=== PATIENT | male | born 1970 | race Caucasian/White ===

== ENCOUNTER 2017-04-10 23:30 | Emergency (ER) | payer OTHER ==
[2017-04-11 00:19] VITALS: PULSE 98; TEMP 98.1; O2SAT 93
[2017-04-11] MEDS ORDERED: Albuterol-Ipratrop 3 mg / 0.5 (3 ml) UD INH STA ×4 (00:19→01:52)
[2017-04-11] MEDS ORDERED: Albuterol-Ipratrop 3 mg / 0.5 (3 ml) UD ONE (00:23)
--- NOTE | 2017-04-11 00:34 | ED PDOC ---
HPI: Pediatric Wheezing/Asthma Time Seen by Provider: 04/11/17 00:13 Chief Complaint (Nursing): Respiratory Distress Chief Complaint (Provider): Respiratory distress History Per: Patient History/Exam Limitations: no limitations Current Symptoms Are (Timing): Still Present Additional History Per: Patient Additional Complaint(s): Marylin Soares is a 46 year old male with a past medical history of asthma who presents to the ED with a chief complaint of coughing for about 3 weeks. Denies any associated symptoms including fever, chills and contact to sickness. Patient has a decreased tolerance for exercise and is an active smoker. Patient states he has been using Albuterol at home but has not helped. - Asthma History Current Asthma Therapy: Albuterol Past Medical History-Pediatric Reviewed: Historical Data, Nursing Documentation, Vital Signs - Medical History Other PMH: Asthma - Surgical History Surgical History: No Surg Hx - Family History Family History: States: No Known Family Hx - Immunization History Hx Tetanus Toxoid Vaccination: No Hx Influenza Vaccination: No Hx Pneumococcal Vaccination: No - Home Medications Home Medications: Ambulatory Orders Medication Instructions Recorded Ciprofloxacin [Cipro] 1 tab PO BID #14 tab 08/30/16 Unknown Cholesterol Medication 08/30/16 metroNIDAZOLE [Flagyl] 500 mg PO TID #21 tab 08/30/16 Albuterol HFA [Ventolin HFA 90 2 puff IH [id number] #1 puff 04/11/17 mcg/actuation (8 g)] Fluticasone Propionate [Flovent 12 gm IH DAILY #1 aer.w.adap 04/11/17 Hfa] predniSONE [predniSONE Tab] 60 mg PO DAILY #9 tab 04/11/17 - Allergies Allergies/Adverse Reactions: Allergies Allergy/AdvReac Type Severity Reaction Status Date / Time No Known Allergies Allergy Verified 08/30/16 06:46 Review of Systems ROS Statement: Except As Marked, All Systems Reviewed And Found Negative Constitutional: Negative for: Fever, Chills, Other (Sick contact) Cardiovascular: Negative for: Chest Pain Respiratory: Positive for: Wheezing Physical Exam - Pediatric - Physical Exam Appears: Well Head Exam: ATRAUMATIC, NORMAL INSPECTION, NORMOCEPHALIC Skin: Normal Color, Warm, Dry Eye Exam: bilateral eye: normal inspection, PERRL, EOMI Ear(s): Bilateral: Normal Nose: Normal ENT Inspection Throat: Normal Neck: Normal, Painless ROM, Supple Lymphatic: Deferred Cardiovascular: Regular Rate, Rhythm, No Murmur, No Tachycardia Respiratory: Wheezing (Bilaterally with prolonged end-expiratory phase) Gastrointestinal/Abdominal: Normal Exam, Soft, No Tenderness Rectal: Deferred Back: Normal Inspection Extremity: Normal ROM Neurological/Psych: Oriented x3, Other (Alert) - ECG O2 Sat by Pulse Oximetry: 93 (RA) Pulse Ox Interpretation: Normal Medical Decision Making Medical Decision Makin: Initial Impression: Asthma exacerbation Initial Plan: * Chest two views * Albuterol/ Ipratropium 3ml * Prednisone 60mg * Peak flow pre/post Treatment * Influenza A B * Re-Eval 230AM: Pt.'s wheezing improved greatly, vitals improved. Instructed on smoking cessation, referral to pulmonology given. Will start patient on daily inhaled corticosteroid. Will d/c, return precautions given. Scribe Attestation: Documented by Hannah Quintanilla acting as a scribe for George Thapa MD. Provider Scribe Attestation: All medical record entries made by the Scribe were at my direction and personally dictated by me. I have reviewed the chart and agree that the record accurately reflects my personal performance of the history, physical exam, medical decision making, and the department course for this patient. I have also personally directed, reviewed, and agree with the discharge instructions and disposition. Disposition - Clinical Impression Clinical Impression: COPD (chronic obstructive pulmonary disease) - Disposition Referrals: Jules Brothers MD [Staff Provider] - ([employer] PAINTER (LUNG SPECIALIST)) Disposition Time: 02:37 Condition: STABLE Prescriptions: Albuterol HFA [Ventolin HFA 90 mcg/actuation (8 g)] 2 puff IH [id number] #1 puff Fluticasone Propionate [Flovent Hfa] 12 gm IH DAILY #1 aer.w.adap predniSONE [predniSONE Tab] 60 mg PO DAILY #9 tab Instructions: Asthma (ED), How to Stop Smoking (ED)
[2017-04-11 02:38] VITALS: BP 130/57; RESP 24
--- NOTE | 2017-04-11 07:59 | RAD ---
HISTORY: smoker, cough, wheezing COMPARISON: No prior. TECHNIQUE: Chest PA and lateral FINDINGS: LUNGS: No active pulmonary disease. PLEURA: No significant pleural effusion identified. No pneumothorax apparent. CARDIOVASCULAR: Normal. OSSEOUS STRUCTURES: No significant abnormalities. VISUALIZED UPPER ABDOMEN: Normal. OTHER FINDINGS: None. IMPRESSION: No active disease.
== END 2017-04-11 02:26 | disposition home or self-care (01) ==
LOC: H.ER 23:30
DX: J44.9 Chronic obstructive pulmonary disease, unspecified (principal)

== ENCOUNTER 2019-02-23 20:31 | Emergency (ER) | payer OTHER ==
[2019-02-23] MEDS ORDERED: Piperacillin/Tazobact 3.375 GM in Sodium Chloride 0.9% 100 ML IVPB STA (21:00)
[2019-02-23] MEDS ORDERED: Piperacillin/Tazobact 3.375 gm Inj IVPB ONE (21:15)
[2019-02-23] MEDS ORDERED: Vancomycin 1 g Inj ONE (21:15)
--- NOTE | 2019-02-23 21:16 | ED PDOC ---
Lower Extremity Pain/Injury Time Seen by Provider: 02/23/19 20:53 Chief Complaint (Nursing): Lower Extremity Problem/Injury Chief Complaint (Provider): Lower Extremity Problem/Injury History Per: Patient History/Exam Limitations: no limitations Onset/Duration Of Symptoms: Days (x1 week) Current Symptoms Are (Timing): Still Present Additional Complaint(s): Patient is a 48 y/o male with a PMHx of asthma, high cholesterol, and diabetes who presents to the ED for evaluation of progressively worsening pain, swelling, and redness to his right calf for the past week. Patient was initially seen by PCP who prescribed 875 mg BID Augmentin. Patient has been on antibiotics for one week. Patient has also been taking Advil for pain. Patient states he last took Advil at 6:00 this morning. Patient denies fever, trauma, chills, and numbness or tingling. PCP: Dr. Benjamin Tello Past Medical History Reviewed: Historical Data, Nursing Documentation, Vital Signs Vital Signs: Last Vital Signs Temp 98.4 F 02/23/19 20:48 Pulse 91 H 02/23/19 20:48 Resp 16 02/23/19 20:48 BP 131/80 02/23/19 20:48 Pulse Ox 96 02/23/19 20:48 - Medical History PMH: Asthma, Diabetes, Hypercholesterolemia, Hyperlipidemia - Surgical History Surgical History: No Surg Hx - Family History Family History: States: No Known Family Hx - Immunization History Hx Tetanus Toxoid Vaccination: No Hx Influenza Vaccination: No Hx Pneumococcal Vaccination: No - Home Medications Home Medications: Ambulatory Orders Medication Instructions Recorded Ciprofloxacin [Cipro] 1 tab PO BID #14 tab 08/30/16 Unknown Cholesterol Medication 08/30/16 metroNIDAZOLE [Flagyl] 500 mg PO TID #21 tab 08/30/16 Albuterol HFA [Ventolin HFA 90 2 puff IH [id number] #1 puff 04/11/17 mcg/actuation (8 g)] Fluticasone Propionate [Flovent 12 gm IH DAILY #1 aer.w.adap 04/11/17 Hfa] predniSONE [predniSONE Tab] 60 mg PO DAILY #9 tab 04/11/17 - Allergies Allergies/Adverse Reactions: Allergies Allergy/AdvReac Type Severity Reaction Status Date / Time No Known Allergies Allergy Verified 08/30/16 06:46 Review of Systems ROS Statement: Except As Marked, All Systems Reviewed And Found Negative Constitutional: Negative for: Fever, Chills Musculoskeletal: Positive for: Other (pain, swelling, and redness of right calf) Neurological: Negative for: Numbness (or tingling) Physical Exam - Reviewed Nursing Documentation Reviewed: Yes Vital Signs Reviewed: Yes - Physical Exam Appears: Positive for: Non-toxic, No Acute Distress Head Exam: Positive for: ATRAUMATIC, NORMAL INSPECTION, NORMOCEPHALIC Skin: Positive for: Normal Color, Warm, DRY Eye Exam: Positive for: EOMI, Normal appearance, PERRL Neck: Positive for: Normal, Painless ROM, Supple Cardiovascular/Chest: Positive for: Regular Rate, Rhythm. Negative for: Murmur Respiratory: Positive for: Normal Breath Sounds. Negative for: Respiratory Distress Pulses-Dorsalis Pedis (L): 2+ Pulses-Dorsalis Pedis (R): 2+ Gastrointestinal/Abdominal: Positive for: Normal Exam, Soft. Negative for: Tenderness Back: Positive for: Normal Inspection. Negative for: L CVA Tenderness, R CVA Tenderness, Vertebral Tenderness Extremity: Positive for: Swelling (mild; large amount of erythema on right calf with central open wound noted). Negative for: Other (no discharge; negative homans sign) Neurological/Psych: Positive for: Alert, Oriented (x3) - Laboratory Results Result Diagrams: 02/23/19 21:15 02/23/19 21:15 - ECG O2 Sat by Pulse Oximetry: 96 (RA) Pulse Ox Interpretation: Normal Medical Decision Making Medical Decision Making: Time: 2058 Impression: Leg Cellulitis Plan: Patient failed outpatient therapy. CMP CBC Vanomycin Zosyn Blood Culture IV Insertion [id number] Dr. Castillo, podiatry resident, is in ED and evaluated pt. and peformed I&D after speaking with Dr. Chen. Scribe Attestation: Documented by Dany Pace, acting as a scribe Heide Kinney PA-C. Provider Scribe Attestation: All medical record entries made by the Scribe were at my direction and personally dictated by me. I have reviewed the chart and agree that the record accurately reflects my personal performance of the history, physical exam, medical decision making, and the department course for this patient. I have also personally directed, reviewed, and agree with the discharge instructions and disposition. Disposition - Clinical Impression Clinical Impression: Cellulitis and abscess of right lower extremity - Patient ED Disposition Is Patient to be Admitted: Transfer of Care (Signed out to Maria Teresa SORENSON pending podiatry disposition and x-ray results.) - Disposition Disposition Time: 23:19 Condition: FAIR Forms: [employer] (Angolan)
[2019-02-23 21:53] LABS: BASO # 0.1 K/uL (0.0-0.2); BASO % 0.7 % (0.0-2.0); EOS # 0.1 K/uL (0.0-0.7); EOS % 1.3 % (0.0-4.0); HEMOGLOBIN 13.2 g/dL (12.0-18.0); LYMPH # 2.5 K/uL (1.0-4.3); LYMPH % 23.9 % (20.0-40.0); MEAN CELL VOLUME 83.3 fl (80.0-94.0); MEAN CORPUSCULAR HEMOGLOBIN 27.8 pg (27.0-31.0); MEAN CORPUSCULAR HGB CONC 33.4 g/dL (33.0-37.0); MEAN PLATELET VOLUME 9.8 fl (7.2-11.7); MONO # 0.7 K/uL (0.0-0.8); NEUT # 7.1 K/uL (1.8-7.0); NEUT % 67.1 % (50.0-75.0); RBC 4.73 Mil/uL (4.40-5.90); RED CELL DISTRIBUTION WIDTH 13.9 % (11.5-14.5); WHITE BLOOD COUNT 10.6 K/uL (4.8-10.8)
[2019-02-23 22:02] LABS: ALB/GLOB RATIO 1.2 (1.0-2.1); ALBUMIN 4.3 g/dL (3.5-5.0); ALT/SGPT 23 U/L (21-72); AST/SGOT 27 U/L (17-59); BLOOD UREA NITROGEN 13 mg/dl (9-20); CALCIUM 9.9 mg/dL (8.4-10.2); GFR NON-AFRICAN AMERICAN > 60
--- NOTE | 2019-02-23 23:43 | ED PDOC ---
- Laboratory Results Result Diagrams: 02/23/19 21:15 02/23/19 21:15 Lab Results: Total Bilirubin 0.2 mg/dl (0.2-1.3) 02/23/19 21:15 AST 27 U/L (17-59) 02/23/19 21:15 ALT 23 U/L (21-72) 02/23/19 21:15 Alkaline Phosphatase 66 U/L (38-126) 02/23/19 21:15 Total Protein 7.9 G/DL (6.3-8.2) 02/23/19 21:15 Albumin 4.3 g/dL (3.5-5.0) 02/23/19 21:15 Globulin 3.6 gm/dL (2.2-3.9) 02/23/19 21:15 Albumin/Globulin Ratio 1.2 (1.0-2.1) 02/23/19 21:15 - ECG O2 Sat by Pulse Oximetry: 96 (RA) - Other Rad xray right tib/fib X-Ray: Viewed By Ga X-Ray Interpretation: no acute findings - Progress ED Course And Treament: Case endorsed to ad writer from Nirmal SORENSON pending Podiatry eval Patient evaluated by Dr. Castillo, podiatry resident on-call; recommends outpatient follow up in clinic on Thursday, rx Bactrim DS Patient educated on findings, discharged with rx Bactrim DS Advised to make appointment for follow up for this Thursday Return precautions given Disposition - Clinical Impression Clinical Impression: Cellulitis and abscess of right lower extremity - POA Present On Arrival: None - Disposition Referrals: Podiatry Clinic [Outside] Disposition: Routine/Home Disposition Time: 23:43 Condition: STABLE Additional Instructions: Call Podiatry clinic to make appointment for February 28 between 8:30 and 10:30 Take medication as directed Return to ED for worsening/concerning symptoms Prescriptions: Sulfamethoxazole/Trimethoprim [Bactrim DS 800 mg-160 mg] 1 tab PO BID #20 tab Instructions: Cellulitis and Erysipelas (Skin Infections), Abscess Incision and Drainage Forms: [employer] ([place]ian)
--- NOTE | 2019-02-24 01:03 | CP.PCM.CON ---
History of Present Illness - History of Present Illness History of Present Illness: Podiatry consult note for Dr. Chen, 48 y/o male with a PMHx of asthma, hyperlipidemia, and diabetes seen and evaluated in the ED progressively worsening pain, swelling, and redness to his right lateral calf for the past week. Patient was initially seen by PCP who prescribed 875 mg BID Augmentin. Patient has been on antibiotics for one week. Patient has also been taking Advil for pain. Patient states hes taking the pain medication regularly. Patient denies fever, trauma, chills, and numbness or tingling. He states the red, and cyst started off with a small pimple one week ago and has grown larger in size. Despite taking antibiotics, it has been getting worse. PCP: Dr. Benjamin Tello Pmhx: astham, hyperlipidemia, new onset of diabetes pshx: none Allergies: none Social hx: denies smoking or drinking alcohol. Past Patient History - Infectious Disease Hx of Infectious Diseases: None - Past Social History Smoking Status: Light Smoker < 10 Cigarettes Daily - CARDIAC Hx Hypercholesterolemia: Yes - PULMONARY Hx Asthma: Yes - GASTROINTESTINAL Hx Constipation: Yes - PSYCHIATRIC Hx Substance Use: No - SURGICAL HISTORY Hx Surgeries: No Meds Home Medications: Home Medication List Medication Instructions Recorded Confirmed Type Sulfamethoxazole/Trimethoprim 1 tab PO BID #20 tab 02/23/19 Rx [Bactrim DS 800 mg-160 mg] Allergies/Adverse Reactions: Allergies Allergy/AdvReac Type Severity Reaction Status Date / Time No Known Allergies Allergy Verified 08/30/16 06:46 Physical Exam - Constitutional Appears: Well, Toxic - Head Exam Head Exam: ATRAUMATIC, NORMOCEPHALIC - Eye Exam Eye Exam: Normal appearance Pupil Exam: NORMAL ACCOMODATION - ENT Exam ENT Exam: Mucous Membranes Moist - Respiratory Exam Respiratory Exam: NORMAL BREATHING PATTERN - Cardiovascular Exam Cardiovascular Exam: REGULAR RHYTHM, +S1, +S2 - Extremities Exam Additional comments: Right leg exam: vascular: DP/PT pulses are palpable, erythema noted on the lateral aspect of the right proximal leg, Increase in temperature noted around the area derm: no open lesions, fluctuance noted on the lateral aspect of the proximal leg measuring approximately 3 cm x 2cm with surrounding erythema, edema and increased warmth. Erythema was noted to extend distally to mid leg and proximally to the posterior aspect of the knee joint. ortho: pain with palpation of the abscess, no pain with ROM of the knee - Neurological Exam Neurological exam: Alert, Oriented x3 Results - Vital Signs Recent Vital Signs: Last Vital Signs Temp 98.4 F 02/23/19 20:48 Pulse 91 H 02/23/19 20:48 Resp 16 02/23/19 20:48 BP 131/80 02/23/19 20:48 Pulse Ox 96 02/24/19 00:46 - Labs Result Diagrams: 02/23/19 21:15 02/23/19 21:15 Labs: Laboratory Results - last 24 hr 02/23/19 02/23/19 21:15 21:15 WBC 10.6 RBC 4.73 Hgb 13.2 Hct 39.4 MCV 83.3 MCH 27.8 MCHC 33.4 RDW 13.9 Plt Count 239 MPV 9.8 Neut % (Auto) 67.1 Lymph % (Auto) 23.9 [place] % (Auto) 7.0 Eos % (Auto) 1.3 Baso % (Auto) 0.7 Neut # (Auto) 7.1 H Lymph # (Auto) 2.5 [place] # (Auto) 0.7 Eos # (Auto) 0.1 Baso # (Auto) 0.1 Sodium 140 Potassium 3.9 Chloride 104 Carbon Dioxide 26 Anion Gap 14 BUN 13 Creatinine 0.8 Est GFR ( Amer) > 60 Est GFR (Non-Af Amer) > 60 Random Glucose 117 H Calcium 9.9 Total Bilirubin 0.2 AST 27 ALT 23 Alkaline Phosphatase 66 Total Protein 7.9 Albumin 4.3 Globulin 3.6 Albumin/Globulin Ratio 1.2 Assessment & Plan - Assessment and Plan (Free Text) Assessment: 48 yo male seen and evaluated with pmhx of diabetes, HLD and asthma for right leg abscess Plan: Patient seen and evaluated Chart, labs vitals and x-rays reviewed Afebrile, absent leukocytosis Tib/fib x-rays WNL Patient educated on risks benefits and complications for bedside incision and drainage. Patient opts for i&D 10 cc of 2% lidocaine injected locally to the right lateral calf Using sterile #15 blade and sterile suture removal kit abscess was drained 7 cc of purulence expressed Site cleansed and dressing with betadine soaked gauze and DSD Patient advised to return if symptoms worsen Patient to f/u in podiatry clinic on Wednesday 02/28 Patient d/c with bactrim DS 1 tab BID x 10 days Thank you for this interesting consult
[2019-02-24 01:45] VITALS: BP 132/86; PULSE 86; RESP 18; TEMP 98.2; O2SAT 98
--- NOTE | 2019-02-24 14:38 | RAD ---
Date of service: 02/24/2019 PROCEDURE: Radiographs of the right tibia and fibula. HISTORY: Pain. No history of recent/ related trauma provided. COMPARISON: None available TECHNIQUE: Frontal and lateral views obtained. 2 views obtained. FINDINGS: BONES: No fracture or destructive lesion. JOINT SPACES: Unremarkable. OTHER FINDINGS: Soft tissue swelling, calf edema. IMPRESSION: Unremarkable radiographs of the right tibia and fibula.
== END 2019-02-24 01:45 | disposition home or self-care (01) ==
LOC: H.ER 20:31
DX: L02.415 Cutaneous abscess of right lower limb (principal); L03.115 Cellulitis of right lower limb; F17.210 Nicotine dependence, cigarettes, uncomplicated; J45.909 Unspecified asthma, uncomplicated; E11.9 Type 2 diabetes mellitus without complications
CPT/HCPCS: 10060; 73590; 80053; 85025; 87040; 87070; 96374; 96375; 99284; J2543